=== PATIENT | male | born 1975 | race Caucasian/White ===

== ENCOUNTER 2020-10-24 12:43 | Emergency (ER) | payer MEDICAID, SELFPAY ==
[2020-10-24 13:15] VITALS: BP 143/90; PULSE 90; RESP 18; TEMP 35.9; O2SAT 97; BMI 36.5
--- NOTE | 2020-10-24 13:29 | ED_ITS ---
HPI - General Adult General Chief complaint: General Medical Stated complaint: body ache, cough Time Seen by Provider: 10/24/20 13:24 Source: patient Mode of arrival: ambulatory Limitations: no limitations History of Present Illness HPI narrative: Has had body aches and chills since yesterday multiple family members at home with similar symptoms. Onset (ago): day(s) (2 days ) Severity: mild Exacerbating factors: none Treatments prior to arrival: none Related Data Allergies Allergy/AdvReac Type Severity Reaction Status Date / Time shellfish derived Allergy Severe SWELLING Verified 10/24/20 13:17 [SHELLFISH DERIVED] Review of Systems Review of Systems: Constitutional: No Weight loss, No Fever, + Chills, No Night Sweats, No Fatigue, No Malaise ENT/Mouth: No Hearing loss, No Ear Pain, No Sinus Pain, No Hoarseness, No sore throat, + Rhinorrhea, No Swallowing Difficulty Eyes: No Eye Pain, No Swelling, No Redness, No Foreign Body, No Discharge, No Vision Changes Cardiovascular: No Chest Pain, No SOB, No Dyspnea on Exertion, No Orthopnea, No Edema, No Palpitations Respiratory: No Cough, No Sputum, No Wheezing, No Smoke Exposure, No Dyspnea Gastrointestinal: No Nausea, No Vomiting, No Diarrhea, No Constipation, No abdominal Pain, No Hematochezia, No Melena Genitourinary: no irregular bleeding, No Dysuria, No Urinary Frequency, No Hematuria, No Urinary Incontinence, No Urgency, No Flank Pain, No Urinary Flow Changes, No Hesitancy Musculoskeletal: No joint pain, + Myalgias, No Joint Swelling Skin: No Skin Lesions, No rash Neuro: No Weakness, No Numbness, No Paresthesias, No Loss of Consciousness, No Dizziness, No Headache Psych: No Social Issues Heme/Lymph: No Bruising, No Bleeding,No Lymphadenopathy Endocrine: No Polyuria, No Polydipsia, No Temperature Intolerance PMFSH Past Medical History Medical History HTN (hypertension) Social History Social History Advance Directives: No Advance Directives Information Provided: Yes Physical Exam Vital Signs: Vital Signs: Last Vital Signs Temp 96.7 F L 10/24/20 13:15 Pulse 90 10/24/20 13:15 Resp 18 10/24/20 13:15 BP 143/90 H 10/24/20 13:15 Pulse Ox 97 10/24/20 13:15 Body Mass Index 36.5 Reviewed Const: General: cooperative and healthy appearing; No acute distress or intoxicated appearing Nutritional Appearance: average body habitus Orientation/consciousness: patient oriented x3 HENMT: Head: Yes normal to inspection Ears: hearing grossly normal bilaterally Face and sinus: Yes other (Mild rhinorrhea) Eyes: General: appearance normal, both eyes and all related structures Visual Vick: normal visual vick by confrontation Neck: Neck: Yes normal visual inspection, No positive Brudzinski's sign, No positive Kernig's sign and No tender Thyroid: Thyroid normal Chest: Chest palpation & inspection: normal inspection of the chest Resp: Effort & Inspection: normal respiratory effort Auscultation: clear to auscultation bilaterally Cardio: Jugular venous distension: no JVD Rate: regular rate Rhythm: regular rhythm GI: Inspection: Yes normal to inspection Percussion: Yes normal to percussion Auscultation: normal bowel sounds : General: Yes no CVA tenderness Back/Spine/Pelvis: Back: no CVA tenderness Skin: General skin exam: no rashes or lesions noted Neuro: General: patient oriented x3 Extrem: General: Yes normal to inspection Course Course Course Narrative: Here with 2 other family members with similar symptoms for COVID-19 testing. Overall nontoxic appearing. He is single. COVID-19 PCR sent out, self-isolation/social distancing guidelines provided. Remain out of work until at least 3 days symptom-free / negative COVID test. Discharge Plan Discharge Clinical Impression: Acute viral syndrome Patient Disposition: Home, Self-Care Instructions: Viral Syndrome (ED) Additional Instructions: Based on your symptoms and history we have sent a COVID-19. Although your RESULT IS PENDING at this time. RESULTS should return within 72 hours. At this time you will be contacted with either NEGATIVE OR POSITIVE results. -Please wait until we contact you for your results. At this time you will be okay for discharge. Please plan for self quarantine for up to 14 days. Do not expose yourself to others. You may not go to work. If testing does come back negative you may return to activities as long as you are no longer having any symptoms for at least 3 days. Please continue to follow cold instructions and wash your hands frequently. You may take Tylenol as directed on the bottle for pain or fever. Patient seen in the emergency department and should be excused from work until negative test results AND until 72 hours without any symptoms AND at least 10 days have passed since symptoms first appeared or since last exposure to COVID- 19 positive patient CDC Guidelines for home isolation: - Stay away from others - WEAR A MASK if you are sick AND STAY HOME - Cover your mouth and nose with a tissue when you cough or sneeze. Dispose of tissues in a lined trash can and wash your hands immediately with soap and water for at least 20 seconds. If soap and water are not available, clean hands with alcohol-based hand office support specialist that contains at least 60% alcohol. - Clean your hands often with soap and water for at least 20 seconds - Avoid touching your eyes, nose and mouth with unwashed hands - Do not share dishes, drinking glasses, cups, eating utensils, towels, or bedding with other people in your home. After using these items, wash them thoroughly with soap and water or put in the ophthalmic surgical assistant. - Clean high-touch surfaces in your isolation area ( sick room and bathroom) every day; let a caregiver clean and disinfect high-touch surfaces in other areas of the home. Clean the area or item with soap and water or another detergent if it is dirty. Then, use a household disinfectant. - Limit contact with pets and animals: If you must care for a pet, wash your hands before and after interacting with them Stand Alone Forms: Work/School Release
== END 2020-10-24 14:24 | disposition home or self-care (01) ==
PROVIDERS: Nurse Practitioner Primary Care; Emergency Provider Emergency Medicine; PCP Internal Medicine
DX: B34.9 Viral infection, unspecified (principal); M79.10 Myalgia, unspecified site; Z20.828 Contact with and (suspected) exposure to other viral communicable diseases
CPT/HCPCS: 99283; U0003

== ENCOUNTER 2020-10-27 09:43 | Outpatient (REF) | payer MEDICAID, SELFPAY | END 2020-10-27 09:44 | disposition home or self-care (01) | LOC: HO.LAB 09:43 | PROVIDERS: Visit Provider Internal Medicine | DX: Z20.828 Contact with and (suspected) exposure to other viral communicable diseases (principal) | CPT/HCPCS: 36415; C9803; U0003 ==

== ENCOUNTER 2021-12-08 09:41 | Emergency (ER) | payer MEDICAID, SELFPAY ==
--- NOTE | ~2021-12-08 | XR_ITS ---
EXAMINATION: XR HIP, LEFT CLINICAL INFORMATION: AP pelvis and left hip COMPARISON: None TECHNIQUE: Two views of the left hip. FINDINGS: AP pelvis: There is normal symmetry of bilateral hip joints and SI joints. No visible fracture or dislocation seen. AP pelvis and left hip: There is no visible acute fracture or dislocation. No bony erosive changes. The soft tissues are normal. XR/XR hip LT w PEL1V IMPRESSION: Unremarkable AP pelvis and left hip exam
--- NOTE | ~2021-12-08 | US_ITS ---
EXAMINATION: US VENOUS ULTRASOUND WITH DOPPLER LOWER EXTREMITY, LEFT CLINICAL INFORMATION: Left thigh pain. Question DVT. COMPARISON: None TECHNIQUE: Ultrasound of the deep veins is performed from the hip to the calf with compression sonography and color and pulse Doppler assessment. Spectral analysis with color-flow imaging is performed. FINDINGS: There is normal venous compression and respiratory variation and augmented flow. The visualized common femoral vein, superficial femoral vein, profunda femoral vein, popliteal vein, and the trifurcation region shows no evidence of deep venous thrombosis. There is no significant popliteal fossa cyst. US/US venous duplex LE LT IMPRESSION: No acute DVT demonstrated in the left lower extremity.
[2021-12-08 09:57] VITALS: BP 119/86; PULSE 84; RESP 19; TEMP 36.6; O2SAT 99; BMI 34.8
--- NOTE | 2021-12-08 11:39 | ED_ITS ---
HPI - General Adult General Chief complaint: Extremity Injury, Lower Stated complaint: leg/hip pain Time Seen by Provider: 12/08/21 11:25 Source: patient Mode of arrival: ambulatory Limitations: no limitations History of Present Illness HPI narrative: 46-year-old male presents to ED for left thigh pain. patient desc ibed left thigh pain as burning/hot sensation. patient states started having this issue last year. Patient denies any back pain, abdominal pain, left lower extremity swelling, redness, fever, or chills. Patient states he has not has had any images for issue. patient states seen mutliple Doctors and has not been given an answer. patient states he is not diabetic and has been worked for diabetes and is negative. Patient states burning in left thigh return 5 days ago and has been constant. patient states last episode was last monght. Patient denies any recent trauma. Patient denies any overuse of extremity or running. Related Data Previous Rx's Medication Instructions Recorded ketorolac 10 mg tablet 10 mg PO QID PRN 5 Days #20 tab 12/08/21 Allergies Allergy/AdvReac Type Severity Reaction Status Date / Time shellfish derived Allergy Severe SWELLING Verified 10/24/20 13:17 [SHELLFISH DERIVED] Review of Systems Review of Systems: left thigh pain Yes all other systems are reviewed and are negative [facility] Past Medical History Medical History HTN (hypertension) Social History Social History Advance Directives: No Advance Directives Information Provided: No Physical Exam ED Vital Signs: Vital Signs - 24 hr 12/08/21 09:57 Temperature 98 F Pulse Rate 84 Respiratory Rate 19 Blood Pressure 119/86 Pulse Oximetry 99 BMI result Body Mass Index 34.8 Const General: cooperative, healthy appearing, comfortable, no acute distress, well developed, alert and awake Orientation/consciousness: oriented to time and patient oriented x3 HENMT Head: Yes normal to inspection, Yes No palpable skull fracture present, Yes normocephalic, Yes atraumatic and No abrasion Eyes General: appearance normal, both eyes and all related structures Neck Neck: Yes normal visual inspection, Yes full ROM, Yes no lymphadenopathy, Yes no meningeal signs, Yes trachea midline, Yes supple, No anterior neck swelling and No tender Chest Chest palpation & inspection: normal inspection of the chest and normal palpation of entire chest wall Resp Effort & Inspection: normal respiratory effort and able to speak in complete sentences Auscultation: clear to auscultation bilaterally Cardio Jugular venous distension: no JVD Heart sounds: S1 normal heart sound present and S2 normal heart sound present GI Inspection: Yes normal to inspection and No abdominal wall ecchymosis Palpation (GI): Soft to palpation, not firm, nontender and no guarding General: No CVA tenderness and Yes no CVA tenderness Back/Spine/Pelvis Back: no CVA tenderness, No CVA tenderness and No back tenderness Skin General skin exam: no rashes or lesions noted and elasticity normal Neuro General: oriented to time, patient oriented x3, gait normal and no meningeal signs Extrem General: Yes normal to inspection and Yes full ROM Upper/lower leg/hip images: 1. significant Tenderness on palpation. Negative for any erythema, palpable mass, fluctulant mass, swelling, or ecchymosis. Popliteal pulses intact. Femoral pulses intact. Pedal pulses intact. Motor/nose/left lower extremity intact. Left lower extremity negative for any erythema, swelling, ecchymosis, crepitus, or deformity. Psych Appearance: grossly normal, well kempt and not disheveled Course Course Course Narrative: History physical exam indicate more neuropathy but will do ultrasound to rule out DVT and hip/pelvis x-ray which will include femur.. Reevaluation(s) Reevaluation #1: X-ray and left lower extremity ultrasound came back negative for DVT or fractures. History physical exam does not indicate DVT, cellulitis, fracture, compartment syndrome,rhambdomylosis, or arterial occlusion. This has been going on off and on for 1 year. Diagnosis peripheral neuropathy. Patient refused gabapentin prescription. Looked over patient's chart and so he was seen providers last year and had neurodiagnostics test but there is no actual notes Time: 13:49 Medical Decision Making [facility] Narrative Medical decision making narrative: Neuropathy Discharge Plan Discharge Clinical Impression: Peripheral neuropathy Patient Disposition: Home, Self-Care Instructions: Peripheral Neuropathy (ED) Additional Instructions: Morejon radiograf?a y ultrasonido resultaron negativos para fractura o trombosis venosa profunda. Usted est? a agnes para el susie. S?ntomas por neuropat?a perif?shabana. Por favor, roseline un seguimiento con el proveedor de atenci?n primari a. Regrese al servicio de urgencias por cualquier hinchaz?n de la extremidad inferior izquierda, enrojecimiento, decoloraci?n amadeo azulada, dolor en la pantorrilla, fiebre, escalofr?os, calor, frialdad, dolor en el pecho, dificultad para respirar o cualquier otro s?ntoma preocupante. Prescriptions: New ketorolac 10 mg tablet 10 mg PO QID PRN (Reason: pain) 5 Days Qty: 20 0RF Stand Alone Forms: Work/School Release Interventions: ED Discharge Assessment Last Done: 12/08/21 14:21 Discharge Date/Time: 12/08/21 14:22 Print Language: Gambian
[2021-12-08] MEDS: Ketorolac Tromethamine 60 MG/2 ML VIAL IM (11:47)
== END 2021-12-08 14:22 | disposition home or self-care (01) ==
PROVIDERS: Emergency Provider Emergency Medicine; PCP Internal Medicine
DX: G62.9 Polyneuropathy, unspecified (principal); M79.652 Pain in left thigh; I10 Essential (primary) hypertension
CPT/HCPCS: 73502; 93971; 96372; 99284; J1885

== ENCOUNTER 2022-10-07 14:02 | Emergency (ER) | payer MEDICAID, SELFPAY ==
--- NOTE | ~2022-10-07 | XR_ITS ---
EXAMINATION: XR LUMBOSACRAL SPINE CLINICAL INFORMATION: Low back pain COMPARISON: None TECHNIQUE: Three views of the lumbosacral spine. FINDINGS: 5 nonrib-bearing lumbar vertebral bodies are visualized. There is normal alignment. Lumbar vertebral body heights and disc spaces are maintained. No significant degenerative changes. Small pelvic calcifications are likely vascular in nature. XR/XR lumbar spine 2-3V IMPRESSION: Unremarkable radiographs of the lumbar spine.
[2022-10-07 14:06] VITALS: BP 117/74; PULSE 83; RESP 18; TEMP 36.8; O2SAT 96; BMI 36.6
--- NOTE | 2022-10-07 14:07 | ED.BACK ---
HPI - Back Pain/Injury General Chief Complaint: Back Pain/Injury <SARA Lucio Last Filed: 10/07/22 14:10> Stated Complaint: back pain <SARA Lucio Last Filed: 10/07/22 14:10> Time Seen by Provider: 10/07/22 14:34 <SARA Lucio Last Filed: 10/07/22 14:10> History of Present Illness HPI Narrative: patient complains of right-sided back pain which began when he bent over to get his shoe this morning and feels a sharp pain that does not radiate and the right side of his back that is worse with movement, there is no numbness weakness or tingling there is no changes to bowel or bladder <SARA Webb Last Filed: 10/08/22 11:09> Related Data Home Medications: Previous Rx's Medication Instructions Recorded ketorolac 10 mg tablet 10 mg PO QID PRN pain 5 days #20 12/08/21 tabs acetaminophen 500 mg tablet 1,000 mg PO QID PRN pain #30 tabs 10/07/22 cyclobenzaprine 5 mg tablet 5 mg PO TID PRN muscle spasm #10 10/07/22 tabs ibuprofen 600 mg tablet 600 mg PO Q6H PRN pain #20 tabs 10/07/22 oxycodone 5 mg tablet 5 mg PO Q6H PRN pain #14 tabs 10/07/22 <SARA Lucio Last Filed: 10/07/22 14:10> Allergies/Adverse Reactions: Allergies Allergy/AdvReac Type Severity Reaction Status Date / Time shellfish derived Allergy Severe SWELLING Verified 10/07/22 14:06 [SHELLFISH DERIVED] <SARA Lucio Last Filed: 10/07/22 14:10> Review of Systems Review of Systems: positive for back pain Negatives are no headache no neck pain no chest pain no shortness of breath no abdominal pain no dysuria no frequency no changes to bowel or bladder no incontinence no constipation no numbness weakness or tingling no joint rash <SARA Webb Last Filed: 10/08/22 11:09> Yes all other systems are reviewed and are negative <SARA Webb Last Filed: 10/08/22 11:09> PMFSH Past Medical History Source: nursing notes reviewed <SARA Webb - Last Filed: 10/08/22 11:09> Medical History: Medical History HTN (hypertension) <SARA Lucio - Last Filed: 10/07/22 14:10> Social History Social History: Social History Advance Directives: No Advance Directives Information Provided: No <SARA Lucio - Last Filed: 10/07/22 14:10> Physical Exam Vital Signs: Vital Signs: Last Vital Signs Temp 98.3 F 10/07/22 14:06 Pulse 83 10/07/22 14:06 Resp 18 10/07/22 14:06 BP 117/74 10/07/22 14:06 Pulse Ox 96 10/07/22 14:06 O2 Del Method 10/07/22 14:06 BMI result Body Mass Index 36.6 <SARA Lucio - Last Filed: 10/07/22 14:10> Vital Signs: Last Vital Signs Temp 98.3 F 10/07/22 14:06 Pulse 83 10/07/22 14:06 Resp 18 10/07/22 14:06 BP 117/74 10/07/22 14:06 Pulse Ox 96 10/07/22 14:06 O2 Del Method 10/07/22 14:06 BMI result Body Mass Index 36.6 <SARA Webb - Last Filed: 10/08/22 11:09> general appearance no distress Head is normocephalic atraumatic Neck is supple Respiratory no distress Abdomen soft nontender The back had right-sided lower lumbar tenderness, pain easily reproduced with movement, skin was normal, there is no CVA tenderness there was no focal bony tenderness Extremities full range of motion x4 Neuro gait and balance are normal, the motor is 5/5 x4 and sensation is intact and symmetrical <SARA Webb - Last Filed: 10/08/22 11:09> Course Course Course Narrative: ARIEL 14:10PM - 47yoM who is Jordanian Speaking presenting to the ER with complaints of sudden onset of lower back pain that started after he was bending over to pick something up. Reports this started prior to arrival. Denies any fevers, history of IV drug use, urinary bowel incontinence or retention, dysuria hematuria or any other symptoms complaints or concerns at this time. Plan: Lumbar Xray. Patient with normal steady gait he can go back to the waiting room to be evaluated in [facility]. <SARA Lucio - Last Filed: 10/07/22 14:10> RME- 14:10PM - 47yoM who is Jordanian Speaking presenting to the ER with complaints of sudden onset of lower back pain that started after he was bending over to pick something up. Reports this started prior to arrival. Denies any fevers, history of IV drug use, urinary bowel incontinence or retention, dysuria hematuria or any other symptoms complaints or concerns at this time. Plan: Lumbar Xray. Patient with normal steady gait he can go back to the waiting room to be evaluated in [facility]. Patient with musculoskeletal reproducible low back pain without neurologic deficit change to bowel or bladder is discharged ambulating easily <SARA Webb - Last Filed: 10/08/22 11:09> Medications Administered Discontinued Medications Generic Name Dose Route Start Last Admin Trade Name Freq PRN Reason Stop Dose Admin Acetaminophen 975 mg 10/07/22 15:33 10/07/22 15:46 Acetaminophen 325 Mg Tablet PO 10/07/22 15:34 975 mg ONCE ONE Administration Ketorolac Tromethamine 30 mg 10/07/22 15:33 10/07/22 15:46 Ketorolac Tromethamine 30 Mg/Ml Vial IM 10/07/22 15:34 30 mg ONCE ONE Administration <SARA Lucio - Last Filed: 10/07/22 14:10> Medications Administered Discontinued Medications Generic Name Dose Route Start Last Admin Trade Name Freq PRN Reason Stop Dose Admin Acetaminophen 975 mg 10/07/22 15:33 10/07/22 15:46 Acetaminophen 325 Mg Tablet PO 10/07/22 15:34 975 mg ONCE ONE Administration Ketorolac Tromethamine 30 mg 10/07/22 15:33 10/07/22 15:46 Ketorolac Tromethamine 30 Mg/Ml Vial IM 10/07/22 15:34 30 mg ONCE ONE Administration <SARA Webb - Last Filed: 10/08/22 11:09> Discharge Plan Discharge Clinical Impression: Strain of lumbar region <SARA Lucio - Last Filed: 10/07/22 14:10> Patient Disposition: Home, Self-Care <SARA Lucio - Last Filed: 10/07/22 14:10> Additional Instructions: use pain medicine and muscle relaxer if needed Follow with primary care doctor next week if not better Most of this type of back pain gets better by itself over several days Return to the ER any time any worse condition or any concerns <SARA Lucio - Last Filed: 10/07/22 14:10> Prescriptions: New acetaminophen 500 mg tablet 1,000 mg PO QID PRN (Reason: pain) Qty: 30 0RF ibuprofen 600 mg tablet 600 mg PO Q6H PRN (Reason: pain) Qty: 20 0RF cyclobenzaprine 5 mg tablet 5 mg PO TID PRN (Reason: muscle spasm) Qty: 10 0RF oxycodone 5 mg tablet 5 mg PO Q6H PRN (Reason: pain) Qty: 14 0RF Rx Instructions: Partial Fill upon patient request. No Action ketorolac 10 mg tablet 10 mg PO QID PRN (Reason: pain) 5 Days Qty: 20 0RF <SARA Lucio - Last Filed: 10/07/22 14:10> Interventions: ED Discharge Assessment Last Done: 10/07/22 15:51 <SARA Lucio - Last Filed: 10/07/22 14:10> Discharge Date/Time: 10/07/22 15:52 <SARA Lucio - Last Filed: 10/07/22 14:10>
[2022-10-07] MEDS: Acetaminophen 325 MG TABLET 975 MG PO (15:46)
[2022-10-07] MEDS: Ketorolac Tromethamine 30 MG/ML VIAL IM (15:46)
== END 2022-10-07 15:52 | disposition home or self-care (01) ==
PROVIDERS: Emergency Provider Emergency Medicine; PCP Internal Medicine
DX: S39.012A Strain of muscle, fascia and tendon of lower back, initial encounter (principal); X50.9XXA Other and unspecified overexertion or strenuous movements or postures, initial encounter; I10 Essential (primary) hypertension; Y93.89 Activity, other specified; Y92.039 Unspecified place in apartment as the place of occurrence of the external cause; Y99.9 Unspecified external cause status
CPT/HCPCS: 72100; 96372; 99283; 99284; J1885

== ENCOUNTER 2022-10-15 14:21 | Emergency (ER) | payer MEDICAID, SELFPAY ==
[2022-10-15 14:25] VITALS: BP 118/93; PULSE 128; RESP 18; TEMP 36.7; O2SAT 96; BMI 35.2
--- NOTE | 2022-10-15 15:35 | ECG_ITS ---
Test Reason : COUGH Blood Pressure : / mmHG Vent. Rate : 097 BPM Atrial Rate : 097 BPM P-R Int : 140 ms QRS Dur : 082 ms QT Int : 350 ms P-R-T Axes : 023 017 029 degrees QTc Int : 444 ms Normal sinus rhythm Normal ECG When compared with ECG of 24-JUN-2020 17:07, No significant change was found Referred By: Stephanie Junior Electronically Signed By:Lawrence Clifford
--- NOTE | 2022-10-15 15:55 | ED_ITS ---
HPI - General Adult General Chief complaint: General Medical Stated complaint: cough, body aches Time Seen by Provider: 10/15/22 15:33 Source: patient Mode of arrival: ambulatory Limitations: language barrier (Turkmen-speaking remote medical coder utilized) History of Present Illness HPI narrative: Patient is a 47-year-old male who presents to the emergency department for evaluation of intermittent headache, productive cough with yellow phlegm, and generalized body aches. His daughter and significant other are ill with similar symptoms as well. Symptom onset a couple of days ago. Additionally, he states that his blood pressure and heart rate have been high for the past couple of days. He states when he takes his atenolol his heart rate is usually normal. When asked, he states he has not taken his atenolol for the past couple of days because he ran out and is unable to get a refill until tomorrow. Denies dizziness, lightheadedness, neck pain, neck stiffness, chest pain, shortness of breath, difficulty breathing, nausea, vomiting, abdominal pain, numbness or tingling of the extremities. Related Data Previous Rx's Medication Instructions Recorded ketorolac 10 mg tablet 10 mg PO QID PRN pain 5 days #20 12/08/21 tabs acetaminophen 500 mg tablet 1,000 mg PO QID PRN pain #30 tabs 10/07/22 cyclobenzaprine 5 mg tablet 5 mg PO TID PRN muscle spasm #10 10/07/22 tabs ibuprofen 600 mg tablet 600 mg PO Q6H PRN pain #20 tabs 10/07/22 oxycodone 5 mg tablet 5 mg PO Q6H PRN pain #14 tabs 10/07/22 Allergies Allergy/AdvReac Type Severity Reaction Status Date / Time shellfish derived Allergy Severe SWELLING Verified 10/07/22 14:06 [SHELLFISH DERIVED] Review of Systems Review of Systems: Constitutional: No fever. No chills. No weakness. Positive fatigue. Positive body aches ENT/ Mouth: No Ear Pain, positive Nasal Congestion, no sore throat, No Rhinorrhea, No Swallowing Difficulty Skin: No rash or itching. Cardiovascular: No chest pain. No palpitations. Respiratory: No shortness of breath. Positive cough. Positive sputum production. Gastrointestinal: No nausea. No vomiting. No diarrhea. No abdominal pain. Genitourinary: No burning micturition. No urinary frequency. Neurologic: Positive headache. No dizziness. No syncope. No numbness or tingling in the extremities. Musculoskeletal: No back pain. No joint pain or stiffness. Yes all other systems are reviewed and are negative [facility] Past Medical History Attestation statement: The following information was validated with the patient. Source: old records reviewed Medical History HTN (hypertension) Social History Social History Advance Directives: No Advance Directives Information Provided: No Physical Exam ED Vital Signs: Vital Signs - 24 hr 10/15/22 14:25 10/15/22 16:12 10/15/22 16:23 Temperature 98.1 F 98.1 F Pulse Rate 128 H 104 H 100 Respiratory Rate 18 20 Blood Pressure 118/93 H 118/79 118/79 Pulse Oximetry 96 96 Oxygen Delivery Method Room Air Room Air Oxygen Flow Rate 10/15/22 17:52 Temperature Pulse Rate 99 Respiratory Rate 16 Blood Pressure 101/73 Pulse Oximetry 98 Oxygen Delivery Method Nasal Cannula Oxygen Flow Rate 2 BMI result Body Mass Index 35.2 Appearance: Alert.?Oriented to person, place and time. No acute distress.?Normal affect. Eyes: Pupils equal, round and reactive to light.? ENT: Pharynx normal.?? Neck: Normal inspection.? Neck supple.??No cervical lymphadenopathy. No nuchal rigidity CVS: Heart sounds normal. Normal heart rate and rhythm.? Pulses normal.?? Respiratory: No respiratory distress.? Lung sounds clear to auscultation bilaterally?? Abdomen: Soft and non-tender. ? Skin: Skin warm and dry.? Normal skin color.? Extremities: No lower extremity edema.? Neuro: Moves all extremities spontaneously. Sensation intact bilaterally. No focal neuro deficits. Ambulates with normal steady gait. Medications Administered Discontinued Medications Generic Name Dose Route Start Last Admin Trade Name Freq PRN Reason Stop Dose Admin Atenolol 50 mg 10/15/22 15:54 10/15/22 16:22 Atenolol 50 Mg Tablet PO 10/15/22 15:55 50 mg ONCE ONE Administration Protocol Medical Decision Making Medical Decision Making MDM Narrative: Patient is a 47-year-old male with a past medical history of hypertension presented to emergency department for evaluation of upper respiratory symptoms. Initially presented tachycardic with heart rate of 128 and hypertensive 118/93, upon re-evaluation heart rate 104, patient has not been taking his atenolol for the past 2 days as he ran out. Patient to receive a dose of atenolol in the emergency department advised to picker packer his refill tomorrow when the pharmacy is open. His physical examination is overall benign, I suspect a self-limiting viral illness. No meningismus, not consistent with meningitis. COVID- 19/influenza/RSV testing are all negative. He is nontoxic appearing, afebrile without tachypnea or hypoxia. No apparent respiratory distress, clear full sentences. Tolerating p.o. intake. Discussed plan of care for discharge home, conservative treatments, outpatient follow-up with primary care provider as needed for persistent symptoms. Discussed worrisome signs and symptoms to return back to the emergency department for, all questions were answered. He is stable for discharge. Lab Data MDM Lab Attestation statement: I reviewed the patient's lab results. Labs: Lab Results 10/15/22 Range/Units 16:22 Influenza Type A (PCR) NEGATIVE (Negative) Influenza Type B (PCR) NEGATIVE (Negative) RSV RNA Qual (PCR) NEGATIVE (Negative) SARS-CoV-2 RNA (RT-PCR) NEGATIVE (Negative) Discharge Plan Discharge Clinical Impression: Upper respiratory infection Patient Disposition: Home, Self-Care Instructions: Upper Respiratory Infection (ED) Additional Instructions: Your testing for COVID-19, influenza, and RSV were all negative today. I suspect that your symptoms are due to a viral upper respiratory infection. Be sure to rest, stay well hydrated drinking plenty of fluids, eat small frequent meals. Tylenol/ibuprofen can be used as needed for fever/pain. [id number]-ynt-fzzgroc cold medications may be helpful as well for symptoms. Saline nasal spray, humidifier may be helpful for nasal congestion. You were given a dose of your atenolol while in the emergency department today, as discussed, please go to the pharmacy to picker packer your medications tomorrow. You may return to the emergency department with any new or worsening symptoms or concerns. Follow-up with your primary care provider as needed. Prescriptions: No Action ketorolac 10 mg tablet 10 mg PO QID PRN (Reason: pain) 5 Days Qty: 20 0RF acetaminophen 500 mg tablet 1,000 mg PO QID PRN (Reason: pain) Qty: 30 0RF ibuprofen 600 mg tablet 600 mg PO Q6H PRN (Reason: pain) Qty: 20 0RF cyclobenzaprine 5 mg tablet 5 mg PO TID PRN (Reason: muscle spasm) Qty: 10 0RF oxycodone 5 mg tablet 5 mg PO Q6H PRN (Reason: pain) Qty: 14 0RF Rx Instructions: Partial Fill upon patient request. Referrals: Anisa Brennan MD [Primary Care Provider] -
--- OUTSIDE RECORDS SUMMARY | 2022-10-15 15:59 | XMS_ITS | Continuity of Care Document ---
:1975 Author Organization [facility]
[2022-10-15 16:12] VITALS: BP 118/79; PULSE 104; RESP 20; TEMP 36.7; O2SAT 96
[2022-10-15 16:23] VITALS: BP 118/79; PULSE 100
[2022-10-15 17:05] LABS: Influenza A PCR NEGATIVE (Negative); Influenza B PCR NEGATIVE (Negative); Resp Syncy Virus RNA Qual PCR NEGATIVE (Negative); SARS COV2 PCR INHOUSE NEGATIVE (Negative)
[2022-10-15 17:52] VITALS: BP 101/73; PULSE 99; RESP 16; O2SAT 98
== END 2022-10-15 18:26 | disposition home or self-care (01) ==
PROVIDERS: Emergency Provider Student in an Organized Health Care Education/Training Program; PCP Internal Medicine
DX: J06.9 Acute upper respiratory infection, unspecified (principal); R05.9 Cough, unspecified; M79.10 Myalgia, unspecified site; Z20.822 Contact with and (suspected) exposure to COVID-19
CPT/HCPCS: 0241U; 93005; 99284

== ENCOUNTER 2022-11-22 14:20 | Outpatient (REF) | payer MEDICAID, SELFPAY | END 2022-11-22 14:21 | disposition home or self-care (01) | LOC: HO.MRI 14:20 | PROVIDERS: PCP Internal Medicine; Visit Provider Internal Medicine | DX: Z13.89 Encounter for screening for other disorder (principal) ==

== ENCOUNTER 2023-07-11 | Outpatient (REF) | payer MEDICAID, SELFPAY ==
[2023-07-12 15:23] LABS: Influenza A PCR NEGATIVE (Negative); Influenza B PCR NEGATIVE (Negative); Resp Syncy Virus RNA Qual PCR NEGATIVE (Negative); SARS COV2 PCR INHOUSE NEGATIVE (Negative)
== END 2023-07-11 00:01 | disposition home or self-care (01) ==
LOC: HO.HHCLNP
PROVIDERS: Visit Provider Registered Nurse
DX: Z20.822 Contact with and (suspected) exposure to COVID-19 (principal); R05.9 Cough, unspecified
CPT/HCPCS: 0241U

== ENCOUNTER 2023-09-03 14:13 | Outpatient (REF) | payer MEDICAID, SELFPAY ==
[2023-09-05 17:43] LABS: TS Negative Control Passed; TS Panel A 0; TS Panel B 1; TS Positive Control Passed; TSpotTB Negative (Negative)
== END 2023-09-03 14:14 | disposition home or self-care (01) ==
LOC: HO.HHCL 14:13
PROVIDERS: Visit Provider Internal Medicine
DX: Z11.1 Encounter for screening for respiratory tuberculosis (principal)
CPT/HCPCS: 36415; 86481

== ENCOUNTER 2023-09-10 14:32 | Outpatient (REF) | payer MEDICAID, SELFPAY ==
[2023-09-10 16:22] LABS: Anion Gap 12 (12-20); Blood Urea Nitrogen 10 mg/dL (9-16); Calcium 9.7 mg/dL (8.4-10.2); Carbon Dioxide 31 mmol/L (22-29); Chloride 100 mmol/L (96-108); Estimated Glomerular Filt Rate > 60; Glucose Random 164 mg/dL (60-115); Potassium 3.5 mmol/L (3.3-5.1); Sodium 139 mmol/L (135-145)
[2023-09-10 16:23] LABS: Cholesterol 252 mg/dL (<200); HDL Cholesterol 46 mg/dL (>40); LDL Cholesterol Calculated 143 mg/dL (<100); Triglycerides 318 mg/dL (<150)
[2023-09-10 16:53] LABS: Reflex LDLD? No
[2023-09-10 17:05] LABS: Creatinine Urine 195.15 mg/dL; Microalbum/Creatinine Ratio Ur 280.8 ug/mg cr (<30)
[2023-09-11 04:13] LABS: HBsAGNum1 0.29 S/CO (0.00-0.99); HIV AB/AG Nonreactive (Nonreactive); HIV Num 1 0.05 S/CO (0.00-0.99); Hepatitis A Antibody IgM 0.39 Index (0-0.79); Hepatitis B Core Antibody Nonreactive (Nonreactive); Hepatitis B Surface Antigen Negative (Negative); ~HepC Num1 0.23 S/CO (0.00-0.79); ~Hepatitis A Antibody IgM Nonreactive (Nonreactive); ~Hepatitis B Surface Antibody NONREACTIVE (Nonreactive); ~Hepatitis C Antibody Nonreactive (Nonreactive)
[2023-09-11 13:09] LABS: RPR Rapid Plasma Reagin NON-REACTIVE (NON-REACTIVE)
== END 2023-09-10 14:33 | disposition home or self-care (01) ==
LOC: HO.HHCL 14:32
PROVIDERS: Visit Provider Internal Medicine
DX: Z00.00 Encounter for general adult medical examination without abnormal findings (principal); E11.65 Type 2 diabetes mellitus with hyperglycemia; I10 Essential (primary) hypertension; Z79.4 Long term (current) use of insulin
CPT/HCPCS: 36415; 80048; 80061; 82043; 82570; 86592; 86704; 86706; 86709; 86803; 87340; 87389

== ENCOUNTER 2023-10-05 15:59 | Emergency (ER) | payer MEDICAID, SELFPAY ==
--- NOTE | 2023-10-05 16:07 | ED_ITS ---
HPI - General Adult General Chief complaint: Upper Respiratory Symptoms Stated complaint: bodyache Time Seen by Provider: 10/05/23 16:30 Source: patient and family (partner) Mode of arrival: ambulatory Limitations: no limitations History of Present Illness HPI narrative: 48 year old male with pmhx significant for nephrolithasis presents to the ED today with a complaint of body aches, cough, and left flank pain x3 days. States flank pain feels similar to renal stone. Has been taking Tylenol at home without relief. Additionally endorses body aches and cough x3 days. Cough is not productive of sputum. Denies fever, chills, sore throat, chest pain, wheezes, shortness of breath, nausea, vomiting, diarrhea, constipation, dysuria, hematuria, bowel or bladder incontinence or retention, saddle anesthesia, tingl ing/numbness/weakness of extremities. Denies IV drug use. COVID exposure at home. Family ill with similar symptoms. Related Data Previous Rx's Medication Instructions Recorded ketorolac 10 mg tablet 10 mg PO QID PRN pain 5 days #20 12/08/21 tabs acetaminophen 500 mg tablet 1,000 mg (2 x 500 mg) PO QID PRN 10/07/22 pain #30 tabs cyclobenzaprine 5 mg tablet 5 mg PO TID PRN muscle spasm #10 10/07/22 tabs ibuprofen 600 mg tablet 600 mg PO Q6H PRN pain #20 tabs 10/07/22 oxycodone 5 mg tablet 5 mg PO Q6H PRN pain #14 tabs 10/07/22 atenolol 50 mg tablet 50 mg PO DAILY 14 days #14 tabs 10/16/22 benzonatate 100 mg capsule 100 mg PO BID PRN cough #14 caps 10/05/23 lidocaine 5 % topical patch 1 patch topical DAILY #15 ea 10/05/23 (Lidoderm) Allergies Allergy/AdvReac Type Severity Reaction Status Date / Time shellfish derived Allergy Severe SWELLING Verified 10/07/22 14:06 [SHELLFISH DERIVED] Review of Systems Review of Systems: Constitutional: No fever, chills, fatigue, night sweats, weight changes ENT/Mouth: No ear pain, hearing loss, nasal congestion, sinus pain, rhinorrhea, sore throat Eyes: No eye pain, swelling, redness, vision changes, discharge Cardio: No chest pain, palpitations, CHANEL, orthopnea, peripheral edema Pulm: No SOB, +cough, No sputum, wheezing, dyspnea, hemoptysis GI: No nausea, vomiting, hematemesis, abdominal pain, diarrhea, constipation, hematochezia, melena : No irregular bleeding, dysuria, frequency, urgency, hesitancy, hematuria, + left flank pain, No urinary flow changes, urinary incontinence or retention MSK: No back pain, neck pain, joint pain, +myalgias Skin: No lesions, rashes Neuro: No weakness, numbness, paresthesias, LOC, dizziness, headache All other systems reviewed and are negative. [facility] Past Medical History Attestation statement: The following information was validated with the patient. Source: old records reviewed and nursing notes reviewed Medical History HTN (hypertension) Social History Social History Advance Directives: No Advance Directives Information Provided: No Physical Exam ED Vital Signs: Vital Signs - 24 hr 10/05/23 16:09 Temperature 98.4 F Pulse Rate 89 Respiratory Rate 20 Blood Pressure 147/93 H Pulse Oximetry 96 Oxygen Delivery Method Room Air BMI result Body Mass Index 34.7 Vital signs stable, afebrile, not hypoxic Const Other: Sitting comfortably in chair General: cooperative, healthy appearing, comfortable, no acute distress, alert and awake Orientation/consciousness: patient oriented x3 Limitations: no limitations HENMT Other: + posterior oropharynx without erythema or edema. No tonsillar exudates. Uvula is midline. No peritonsillar masses. Controlling secretions and speaking in complete sentences. Head: Yes normal to inspection Ears: hearing grossly normal bilaterally, external ears normal, TM's normal bilaterally, EAC's normal, mastoids normal and no periauricular adenopathy General nose exam: Normal external nose present, Normal nares present and No nasal discharge present Face and sinus: Yes normal facial exam and Yes sinuses nontender Eyes General: appearance normal, both eyes and all related structures Conjunctivae: conjunctivae normal Sclerae: sclerae normal Pupils: Equal, round and reactive pupils present EOM: EOMs intact bilaterally Neck Neck: Yes normal visual inspection, Yes full ROM, Yes no lymphadenopathy and Yes no meningeal signs Resp Effort & Inspection: normal respiratory effort Auscultation: clear to auscultation bilaterally Cardio Rate: regular rate Rhythm: regular rhythm Peripheral pulses: radial pulses present, posterior tibial pulses present and dorsalis pedis present GI Inspection: Yes normal to inspection Palpation (GI): Soft to palpation, nontender, no guarding and no hepatosplenomegaly Other: + left CVAT Back/Spine/Pelvis Other: No midline spinous tenderness. No paraspinal muscle tenderness. No step off deformity. + left CVAT Skin General skin exam: no rashes or lesions noted Neuro Other: Strength 5/5 intact throughout.? No saddle anesthesia.? Sensation intact to light touch.? Neurovascular intact distally.? General: patient oriented x3, gait normal, moves all extremities and no meningeal signs Cranial nerves: Yes Equal, round and reactive pupils present Deep tendon reflexes (DTR's): Right patellar reflex intensity grade: 2+ and Left patellar reflex intensity grade: 2+ Extrem General: Yes normal to inspection and Yes full ROM Course Course Course Narrative: RME performed by Ruby Garcia PA-C. Patient is a 48 year old assigned male at presenting to the emergency department with body aches. Hx of kidney stones, Also complaining of low back pain. Swabs ordered. Patient placed back in the waiting room pending room availability and results. Reevaluation(s) Reevaluation #1: On re-evaluation, patient reports pain improvement with lidocaine and Tylenol. I informed him that he has tested negative for flu, COVID, RSV, strep throat. His urine is negative for infection. Informed him that we are just waiting for his CT to be taken and read. He tells me that he does no longer want a CT scan as he is hungry and wants to go home. I offered to give patient a snack in ED. He is declining. States he would still like to go home. I explained to him that imaging will help us evaluate for renal stones. He verbalizes understanding and continues to decline imaging. Patient has remained stable throughout ED visit today. I will send Gil Barr to pharmacy for cough. Discussed worrisome signs and symptoms and when to return to the emergency department. All questions answered at this time. Patient is agreeable with disposition and stable for discharge. Medications Administered Discontinued Medications Generic Name Dose Route Start Last Admin Trade Name Freq PRN Reason Stop Dose Admin Acetaminophen 975 mg 10/05/23 17:08 10/05/23 17:35 Acetaminophen 325 Mg Tablet PO 10/05/23 17:09 975 mg ONCE ONE Administration Dexamethasone Sodium Phosphate 10 mg 10/05/23 17:21 10/05/23 17:35 Dexamethasone Sod Phosphate 10 Mg/Ml Vial IVPUSH 10/05/23 17:22 10 mg ONCE ONE Administration Lidocaine 1 patch 10/05/23 17:08 10/05/23 17:35 Lidocaine 4 % Patch Adh..Patch TRANSDERMA 10/05/23 17:09 1 patch ONCE ONE Administration Protocol Medical Decision Making Medical Decision Making [facility] Narrative: 48 year old male with pmhx significant for nephrolithasis presents to the ED today with a complaint of body aches, cough, and left flank pain x3 days. Vital signs stable, afebrile, not hypoxic. Nontoxic appearing in no acute distress. Sitting comfortably in chair. Posterior oropharynx without erythema or edema, uvula midline, no peritonsillar masses or tonsillar exudates, controlling secretions and speaking complete sentences. Bilaterally EACs and TMs within normal limits. Lungs CTA bilaterally. There is left-sided CVAT. Clinical concern for viral syndrome, gastroenteritis, strep throat. Concern for renal colic, urinary tract infection, nephrolithiasis. Concern for muscle sprain/strain. Unlikely pneumonia, PE, PICK UP OPERATOR, retropharyngeal abscess, epiglottitis. Unlikely hydronephrosis, pyelonephritis, cauda equina, epidural abscess, cord compression, fracture, subluxation, disc herniation. Plan for urinalysis, serology, imaging and pain control. Differential Diagnosis Differential Diagnoses: The differential diagnosis associated with the presentation includes As above Admission/Observation Not indicated Lab Data [facility] Lab Attestation statement: I reviewed the patient's lab results. As above Labs: Lab Results 10/05/23 10/05/23 Range/Units 16:21 16:28 Urine Color Dark Yellow Urine Appearance Clear Urine pH 5.5 (5.0-9.0) Ur Specific [place] 1.020 (1.005-1.025) Urine Protein 100 (2+) H (Neg-Trace) mg/dL Urine Glucose (UA) Negative (Negative) mg/dL Urine Ketones Trace (Negative) mg/dL Urine Blood Negative (Negative) Urine Nitrite Negative (Negative) Ur Leukocyte Esterase Trace H (Negative) Urine RBC 0-2 (0-2) /HPF Urine WBC 0-5 (0-5) /HPF Ur Squamous Epith Cells 0-2 (0-2) /HPF Urine Bacteria None Seen (None Seen) Hyaline Casts 3-5 (0-2) /LPF Influenza Type A (PCR) NEGATIVE (Negative) Influenza Type B (PCR) NEGATIVE (Negative) RSV RNA Qual (PCR) NEGATIVE (Negative) SARS-CoV-2 RNA (RT-PCR) NEGATIVE (Negative) S. pyogenes GrpA NIDA Negative (Negative) Independent Historian Clinical information obtained from an independent historian. History obtained from or confirmed by: Spouse External Record Review External record reviewed: Inpatient record Tests considered The following testing was considered but not selected: I considered obtaining CT abdomen and pelvis to rule out renal stone however patient declines imaging at this time. Prescription Management I considered prescription management with: Pain Medication and Other (Antitussive) Social Determinants Patient?s care significantly limited by Social Determinants of Health including: Other Social Determinant of Health Critical Care Time Critical Care Time Critical Care Time: No Discharge Plan Discharge Clinical Impression: Back pain, Viral syndrome Patient Disposition: Home, Self-Care Instructions: Acute Low Back Pain (ED), Viral Syndrome (ED) Additional Instructions: You tested negative for COVID, flu, RSV, strep throat. You currently reside in a house with 2 COVID positive people. Due to your exposure you should self isolate for 5 days. He should also wear a mask for 5 days after that. You may take Tylenol or ibuprofen as needed for pain/body aches. Gil Barr have been sent to your pharmacy for cough. You also declined CT scan of your abdomen pelvis today to look for kidney stones. Lidoderm patches have been sent to your pharmacy. You may apply these to your back to help with pain. Follow-up with your primary care provider as needed. If symptoms persist or worsen please return to the emergency department. In the case of an emergency call 911. Prescriptions: New benzonatate 100 mg capsule 100 mg PO BID PRN (Reason: cough) Qty: 14 0RF lidocaine [Lidoderm] 5 % adhesive patch,medicated 1 patch topical DAILY Qty: 15 0RF Rx Instructions: leave on most painful area for up to 12 hrs No Action ketorolac 10 mg tablet 10 mg PO QID PRN (Reason: pain) 5 Days Qty: 20 0RF acetaminophen 500 mg tablet 1,000 mg PO QID PRN (Reason: pain) Qty: 30 0RF ibuprofen 600 mg tablet 600 mg PO Q6H PRN (Reason: pain) Qty: 20 0RF cyclobenzaprine 5 mg tablet 5 mg PO TID PRN (Reason: muscle spasm) Qty: 10 0RF oxycodone 5 mg tablet 5 mg PO Q6H PRN (Reason: pain) Qty: 14 0RF Rx Instructions: Partial Fill upon patient request. atenolol 50 mg tablet 50 mg PO DAILY 14 Days Qty: 14 0RF Stand Alone Forms: Work/School Release Interventions: ED Discharge Assessment Last Done: 10/05/23 18:40 Discharge Date/Time: 10/05/23 18:40 Print Language: Czech
[2023-10-05 16:09] VITALS: BP 147/93; PULSE 89; RESP 20; TEMP 36.9; O2SAT 96; BMI 34.7
[2023-10-05 16:36] LABS: Appearance Urine Clear; Color Urine Dark Yellow; Glucose Urine UA Negative (Negative); Leukocyte Esterase Urine Trace (Negative); Nitrite Urine Negative (Negative); PH 5.5 (5.0-9.0); UMIC TRIGGER UACC YES; Urine Blood Negative (Negative); Urine Ketones Trace mg/dL (Negative); Urine Protein 100 (2+) mg/dL (Neg-Trace)
[2023-10-05 16:39] LABS: Bacteria Urine None Seen (None Seen); RBC Urine 0-2 /HPF (0-2); Squamous Epithelial Cell Urine 0-2 /HPF (0-2); WBC Urine 0-5 /HPF (0-5)
[2023-10-05 17:13] LABS: Influenza A PCR NEGATIVE (Negative); Influenza B PCR NEGATIVE (Negative); Resp Syncy Virus RNA Qual PCR NEGATIVE (Negative); SARS COV2 PCR INHOUSE NEGATIVE (Negative)
[2023-10-05 17:22] LABS: IDNOW Serial# 58CA691E; Strep A Nucleic Acid Negative (Negative)
[2023-10-05] MEDS: Acetaminophen 325 MG TABLET 975 MG PO (17:35)
[2023-10-05] MEDS: Lidocaine 4 % Patch ADH..PATCH 1 PATCH TRANSDERMA (17:35)
[2023-10-05] MEDS: dexAMETHasone sod phosphate 10 MG/ML VIAL IVPUSH (17:35)
== END 2023-10-05 18:40 | disposition home or self-care (01) ==
PROVIDERS: Physician Assistant Medical; Emergency Provider Emergency Medicine; PCP Internal Medicine
DX: B34.9 Viral infection, unspecified (principal); M79.10 Myalgia, unspecified site; Z20.822 Contact with and (suspected) exposure to COVID-19; Z20.828 Contact with and (suspected) exposure to other viral communicable diseases; Z79.899 Other long term (current) drug therapy
CPT/HCPCS: 0241U; 81001; 87651; 99283; J1100

== ENCOUNTER 2024-05-01 14:54 | Emergency (ER) | payer OTHER, SELFPAY ==
[2024-05-01 15:13] VITALS: BP 144/89; PULSE 84; RESP 18; TEMP 37; O2SAT 98; BMI 33.9
--- NOTE | 2024-05-01 15:13 | ED_ITS ---
HPI - GI Bleed General Chief complaint: General Medical Stated complaint: rectal bleeding Time Seen by Provider: 05/01/24 19:14 Related Data Previous Rx's ?Medication ?Instructions ?Recorded ketorolac 10 mg tablet 10 mg PO QID PRN pain 5 days #20 12/08/21 tabs acetaminophen 500 mg tablet 1,000 mg (2 x 500 mg) PO QID PRN 10/07/22 pain #30 tabs cyclobenzaprine 5 mg tablet 5 mg PO TID PRN muscle spasm #10 10/07/22 tabs ibuprofen 600 mg tablet 600 mg PO Q6H PRN pain #20 tabs 10/07/22 oxycodone 5 mg tablet 5 mg PO Q6H PRN pain #14 tabs 10/07/22 atenolol 50 mg tablet 50 mg PO DAILY 14 days #14 tabs 10/16/22 benzonatate 100 mg capsule 100 mg PO BID PRN cough #14 caps 10/05/23 lidocaine 5 % topical patch 1 patch topical DAILY #15 ea 10/05/23 (Lidoderm) Allergies Allergy/AdvReac Type Severity Reaction Status Date / Time shellfish derived Allergy Severe SWELLING Verified 05/01/24 15:14 [SHELLFISH DERIVED] [facility] Past Medical History Medical History HTN (hypertension) Social History Social History Advance Directives: No Advance Directives Information Provided: No Physical Exam 2 Vital Signs: Vital Signs: Last Vital Signs Temp 97.9 F 05/01/24 19:20 Pulse 70 05/01/24 19:57 Resp 14 05/01/24 19:20 BP 161/95 H 05/01/24 19:57 Pulse Ox 100 05/01/24 19:20 O2 Del Method Room Air 05/01/24 19:20 BMI result Body Mass Index 33.9 Course Course Course Narrative: This is a Rapid Medical Examination (RME) performed by Anne Keys PA-C in triage. Full HPI, ROS, assessment and treatment plan per primary provider in the Main ED. 48 yo Ecuadorean speaking male with history of HTN, kidney stones, presents to the ER for evaluation of rectal bleeding for the last 3 days. there are some drops in the toilet, but mostly when he wipes himself. the 1st day it was a lot and then it stopped yesterday, returned today. admits to occasional constipation. reports cramping with bowel movements. Plan: CHANTELL, labs Reevaluation(s) Reevaluation #1: see Dr. Gutierrez's note for this encounter Medical Decision Making Lab Data 05/01/24 15:33 05/01/24 15:33 Labs: Lab Results 05/01/24 Range/Units 15:33 WBC 7.3 (4.8-10.8) X10*3/uL RBC 3.49 L (4.60-5.80) X10*6/uL Hgb 13.4 L (14.0-18.0) g/dl Hct 38.4 L (42.0-52.0) % MCV 110.0 H (80.0-98.0) fL MCH 38.4 H (27.0-33.0) pg MCHC 34.9 (31.0-36.0) g/dl RDW 11.9 (11.0-16.0) % Plt Count 181 (160-400) X10*3/uL MPV 11.3 (9.4-12.4) fL Immature Gran % (Auto) 0.3 (0.0-0.4) % Neut % (Auto) 60.9 (45-73) % Lymph % (Auto) 26.1 (20-40) % [place] % (Auto) 10.4 (2-11) % Eos % (Auto) 2.0 (0-4) % Baso % (Auto) 0.3 (0-2) % Lymph # (Auto) 1.9 (1.2-4.9) X10*3/uL [place]once # (Auto) 0.8 (0.1-1.2) X10*3/uL Eos # (Auto) 0.2 (0.0-0.4) X10*3/uL Baso # (Auto) 0.0 (0.0-0.2) X10*3/uL Abs Immat Gran (auto) 0.02 (0.00-0.03) X10*3/uL Absolute Neuts (auto) 4.5 (2.0-8.3) x10*3/uL Absolute Nucleated RBC 0.000 (0.0-0.012) X10*3/uL Nucleated RBC % (auto) 0.0 (0.0-0.2) /100WBC Sodium 139 (135-145) mmol/L Potassium 3.6 (3.3-5.1) mmol/L Chloride 104 (96-108) mmol/L Carbon Dioxide 28 (22-29) mmol/L Anion Gap 11 L (12-20) BUN 14 (9-16) mg/dL Creatinine 0.92 (0.5-1.4) mg/dL Estim Creat Clear Calc 107.2 Estimated GFR > 60 Random Glucose 214 H (60-115) mg/dL Calcium 10.2 (8.4-10.2) mg/dL Magnesium 1.9 (1.6-2.6) mg/dL Total Bilirubin 0.6 (0.0-1.0) mg/dL Direct Bilirubin 0.2 (0.0-0.5) mg/dL AST 39 H (5-37) U/L ALT 49 H (0-40) U/L Alkaline Phosphatase 74 (39-117) U/L Total Protein 7.7 (6.5-8.0) g/dL Albumin 4.2 (3.5-5.0) g/dL Urine Color Yellow Urine Appearance Clear Urine pH 5.5 (5.0-9.0) Ur Specific [place] 1.020 (1.005-1.025) Urine Protein 100 (2+) H (Neg-Trace) mg/dL Urine Glucose (UA) Negative (Negative) mg/dL Urine Ketones Trace (Negative) mg/dL Urine Blood Negative (Negative) Urine Nitrite Negative (Negative) Ur Leukocyte Esterase Negative (Negative) Urine RBC 0-2 (0-2) /HPF Urine WBC 0-5 (0-5) /HPF Ur Squamous Epith Cells 0-2 (0-2) /HPF Urine Bacteria None Seen (None Seen) Hyaline Casts 0-2 (0-2) /LPF Discharge Plan Discharge Clinical Impression: Hemorrhoid Patient Disposition: Home, Self-Care Instructions: Hemorrhoids (DC) Prescriptions: No Action ketorolac 10 mg tablet 10 mg PO QID PRN (Reason: pain) 5 Days Qty: 20 0RF acetaminophen 500 mg tablet 1,000 mg PO QID PRN (Reason: pain) Qty: 30 0RF ibuprofen 600 mg tablet 600 mg PO Q6H PRN (Reason: pain) Qty: 20 0RF cyclobenzaprine 5 mg tablet 5 mg PO TID PRN (Reason: muscle spasm) Qty: 10 0RF oxycodone 5 mg tablet 5 mg PO Q6H PRN (Reason: pain) Qty: 14 0RF Rx Instructions: Partial Fill upon patient request. atenolol 50 mg tablet 50 mg PO DAILY 14 Days Qty: 14 0RF benzonatate 100 mg capsule 100 mg PO BID PRN (Reason: cough) Qty: 14 0RF lidocaine [Lidoderm] 5 % adhesive patch,medicated 1 patch topical DAILY Qty: 15 0RF Rx Instructions: leave on most painful area for up to 12 hrs Referrals: Álvaro Copeland MD [Physician] - 05/05/24 Print Language: Ecuadorean
[2024-05-01 15:49] LABS: MANUAL DIFF FLAG NO
[2024-05-01 15:53] LABS: Appearance Urine Clear; Basophils Percent Auto 0.3 % (0-2); Color Urine Yellow; Eosinophils Absolute Auto 0.2 X10*3/uL (0.0-0.4); Glucose Urine UA Negative (Negative); Hematocrit 38.4 % (42.0-52.0); Hemoglobin 13.4 g/dl (14.0-18.0); Imm Gran Abs Auto 0.02 X10*3/uL (0.00-0.03); Imm Gran Pct Auto 0.3 % (0.0-0.4); Leukocyte Esterase Urine Negative (Negative); Lymphocytes Absolute Auto 1.9 X10*3/uL (1.2-4.9); Lymphocytes Percent Auto 26.1 % (20-40); Mean Corpuscular HGB Conc 34.9 g/dl (31.0-36.0); Mean Corpuscular Hemoglobin 38.4 pg (27.0-33.0); Mean Platelet Volume 11.3 fL (9.4-12.4); Monocytes Absolute Auto 0.8 X10*3/uL (0.1-1.2); Monocytes Percent Auto 10.4 % (2-11); Neutrophils Absolute Auto 4.5 x10*3/uL (2.0-8.3); Neutrophils Percent Auto 60.9 % (45-73); Nitrite Urine Negative (Negative); PH 5.5 (5.0-9.0); Platelet Count 181 X10*3/uL (160-400); Red Blood Count 3.49 X10*6/uL (4.60-5.80); Red Cell Distribution Width 11.9 % (11.0-16.0); UMIC TRIGGER UACC YES; Urine Blood Negative (Negative); Urine Ketones Trace mg/dL (Negative); Urine Protein 100 (2+) mg/dL (Neg-Trace); White Blood Count 7.3 X10*3/uL (4.8-10.8)
[2024-05-01 16:05] LABS: Alanine Aminotransferase 49 U/L (0-40); Albumin Level 4.2 g/dL (3.5-5.0); Alkaline Phosphatase 74 U/L (39-117); Anion Gap 11 (12-20); Aspartate Amino Transferase 39 U/L (5-37); Bilirubin Direct 0.2 mg/dL (0.0-0.5); Bilirubin Total 0.6 mg/dL (0.0-1.0); Blood Urea Nitrogen 14 mg/dL (9-16); Calcium 10.2 mg/dL (8.4-10.2); Carbon Dioxide 28 mmol/L (22-29); Chloride 104 mmol/L (96-108); Creatinine Clr Calc Pharmacy 107.2; Estimated Glomerular Filt Rate > 60; Glucose Random 214 mg/dL (60-115); Magnesium 1.9 mg/dL (1.6-2.6); Potassium 3.6 mmol/L (3.3-5.1); Sodium 139 mmol/L (135-145); Total Protein 7.7 g/dL (6.5-8.0)
[2024-05-01 16:32] LABS: Bacteria Urine None Seen (None Seen); Hyaline Casts Urine 0-2 /LPF (0-2); RBC Urine 0-2 /HPF (0-2); Squamous Epithelial Cell Urine 0-2 /HPF (0-2); WBC Urine 0-5 /HPF (0-5)
[2024-05-01 19:20] VITALS: BP 159/91; PULSE 67; RESP 14; TEMP 36.6; O2SAT 100
[2024-05-01 19:53] VITALS: BP 165/100; PULSE 68
[2024-05-01 19:54] VITALS: BP 153/96; PULSE 64
[2024-05-01 19:57] VITALS: BP 161/95; PULSE 70
--- NOTE | 2024-05-01 19:59 | ED_ITS ---
HPI - General Adult General Chief complaint: General Medical Stated complaint: rectal bleeding Time Seen by Provider: 05/01/24 19:14 History of Present Illness HPI narrative: Patient is a 48-year-old male with a history of constipation in the past. Patient noted hard stool along with having blood when he wipes blood in the toilet bowl. Patient denies any history of NSAID use. Did not have any alcohol use. He is from home. No dizziness no chest pain or shortness of breath. Patient is from home. No fever no chills. Related Data Previous Rx's ?Medication ?Instructions ?Recorded ketorolac 10 mg tablet 10 mg PO QID PRN pain 5 days #20 12/08/21 tabs acetaminophen 500 mg tablet 1,000 mg (2 x 500 mg) PO QID PRN 10/07/22 pain #30 tabs cyclobenzaprine 5 mg tablet 5 mg PO TID PRN muscle spasm #10 10/07/22 tabs ibuprofen 600 mg tablet 600 mg PO Q6H PRN pain #20 tabs 10/07/22 oxycodone 5 mg tablet 5 mg PO Q6H PRN pain #14 tabs 10/07/22 atenolol 50 mg tablet 50 mg PO DAILY 14 days #14 tabs 10/16/22 benzonatate 100 mg capsule 100 mg PO BID PRN cough #14 caps 10/05/23 lidocaine 5 % topical patch 1 patch topical DAILY #15 ea 10/05/23 (Lidoderm) Allergies Allergy/AdvReac Type Severity Reaction Status Date / Time shellfish derived Allergy Severe SWELLING Verified 05/01/24 15:14 [SHELLFISH DERIVED] Review of Systems 2 Review of Systems: Positive blood when he wipes. Yes all other systems are reviewed and are negative [facility] Past Medical History Attestation statement: The following information was validated with the patient. Medical History HTN (hypertension) Social History Social History Advance Directives: No Advance Directives Information Provided: No Physical Exam ED Vital Signs: Vital Signs - 24 hr 05/01/24 15:13 05/01/24 19:20 05/01/24 19:53 Temperature 98.6 F 97.9 F Pulse Rate 84 67 68 Respiratory Rate 18 14 Blood Pressure 144/89 H 159/91 H 165/100 H Pulse Oximetry 98 100 Oxygen Delivery Method Room Air Room Air 05/01/24 19:54 05/01/24 19:57 Temperature Pulse Rate 64 70 Respiratory Rate Blood Pressure 153/96 H 161/95 H Pulse Oximetry Oxygen Delivery Method BMI result Body Mass Index 33.9 Appearance: Alert. Oriented X3. No acute distress. Eyes: Pupils equal, round and reactive to light. ENT: Pharynx normal. Neck: Normal inspection. Neck supple. No lymph nodes noted. No crepitus CVS: Normal heart rate and rhythm. Pulses normal. Normal S1 and S2 Respiratory: No respiratory distress. Breath sounds normal. No Wheezing. No rales Abdomen: Soft and nontender. No rigidity. No distention. good BS x4 Rectal exam showed minimal stool. No blood noted. Skin: Skin warm and dry. Normal skin color. Normal skin turgor. Extremities: No lower extremity edema. Neurovascular intact to all extremities. No Lacerations. No Rash Neuro: Oriented X 3. No motor deficit. No sensory deficit. Moving all extermities. No slurred speech Medical Decision Making Medical Decision Making MDM Narrative: Patient's hemoglobin is over 13 today. Approximately baseline. Orthostatic will be done. Stool sent for guaiac. Currently in stable condition no acute distress on exam there was hemorrhoids noted. More likely that has the cause of patient's bleeding. No distress. Patient's orthostatics were done. On lying down blood pressure is 165/100 heart rate 63. On standing patient's blood pressure is 161/95 heart rate is 70. Patient is not orthostatic. Patient is case discussed with him. Will discharge patient home. Most likely hemorrhoidal bleed. Will require follow-up on an outpatient basis. Careful diet consideration. Follow-up with surgery. Differential Diagnosis Differential Diagnoses: The differential diagnosis associated with the presentation includes GI bleed, hemorrhoid Admission/Observation Consideration of admission/observation: Escalation of care including admission/observation considered Lab Data [facility] Lab Attestation statement: I reviewed the patient's lab results. 05/01/24 15:33 05/01/24 15:33 Labs: Lab Results 05/01/24 05/01/24 Range/Units 15:33 20:00 WBC 7.3 (4.8-10.8) X10*3/uL RBC 3.49 L (4.60-5.80) X10*6/uL Hgb 13.4 L (14.0-18.0) g/dl Hct 38.4 L (42.0-52.0) % MCV 110.0 H (80.0-98.0) fL MCH 38.4 H (27.0-33.0) pg MCHC 34.9 (31.0-36.0) g/dl RDW 11.9 (11.0-16.0) % Plt Count 181 (160-400) X10*3/uL MPV 11.3 (9.4-12.4) fL Immature Gran % (Auto) 0.3 (0.0-0.4) % Neut % (Auto) 60.9 (45-73) % Lymph % (Auto) 26.1 (20-40) % [place] % (Auto) 10.4 (2-11) % Eos % (Auto) 2.0 (0-4) % Baso % (Auto) 0.3 (0-2) % Lymph # (Auto) 1.9 (1.2-4.9) X10*3/uL [place] # (Auto) 0.8 (0.1-1.2) X10*3/uL Eos # (Auto) 0.2 (0.0-0.4) X10*3/uL Baso # (Auto) 0.0 (0.0-0.2) X10*3/uL Abs Immat Gran (auto) 0.02 (0.00-0.03) X10*3/uL Absolute Neuts (auto) 4.5 (2.0-8.3) x10*3/uL Absolute Nucleated RBC 0.000 (0.0-0.012) X10*3/uL Nucleated RBC % (auto) 0.0 (0.0-0.2) /100WBC Sodium 139 (135-145) mmol/L Potassium 3.6 (3.3-5.1) mmol/L Chloride 104 (96-108) mmol/L Carbon Dioxide 28 (22-29) mmol/L Anion Gap 11 L (12-20) BUN 14 (9-16) mg/dL Creatinine 0.92 (0.5-1.4) mg/dL Estim Creat Clear Calc 107.2 Estimated GFR > 60 Random Glucose 214 H (60-115) mg/dL Calcium 10.2 (8.4-10.2) mg/dL Magnesium 1.9 (1.6-2.6) mg/dL Total Bilirubin 0.6 (0.0-1.0) mg/dL Direct Bilirubin 0.2 (0.0-0.5) mg/dL AST 39 H (5-37) U/L ALT 49 H (0-40) U/L Alkaline Phosphatase 74 (39-117) U/L Total Protein 7.7 (6.5-8.0) g/dL Albumin 4.2 (3.5-5.0) g/dL Urine Color Yellow Urine Appearance Clear Urine pH 5.5 (5.0-9.0) Ur Specific [place] 1.020 (1.005-1.025) Urine Protein 100 (2+) H (Neg-Trace) mg/dL Urine Glucose (UA) Negative (Negative) mg/dL Urine Ketones Trace (Negative) mg/dL Urine Blood Negative (Negative) Urine Nitrite Negative (Negative) Ur Leukocyte Esterase Negative (Negative) Urine RBC 0-2 (0-2) /HPF Urine WBC 0-5 (0-5) /HPF Ur Squamous Epith Cells 0-2 (0-2) /HPF Urine Bacteria None Seen (None Seen) Hyaline Casts 0-2 (0-2) /LPF Stool Occult Blood POSITIVE (NEGATIVE) External Record Review Previous hemoglobin reviewed Discharge Plan Discharge Clinical Impression: Hemorrhoid Patient Disposition: Home, Self-Care Instructions: Hemorrhoids (DC) Prescriptions: No Action ketorolac 10 mg tablet 10 mg PO QID PRN (Reason: pain) 5 Days Qty: 20 0RF acetaminophen 500 mg tablet 1,000 mg PO QID PRN (Reason: pain) Qty: 30 0RF ibuprofen 600 mg tablet 600 mg PO Q6H PRN (Reason: pain) Qty: 20 0RF cyclobenzaprine 5 mg tablet 5 mg PO TID PRN (Reason: muscle spasm) Qty: 10 0RF oxycodone 5 mg tablet 5 mg PO Q6H PRN (Reason: pain) Qty: 14 0RF Rx Instructions: Partial Fill upon patient request. atenolol 50 mg tablet 50 mg PO DAILY 14 Days Qty: 14 0RF benzonatate 100 mg capsule 100 mg PO BID PRN (Reason: cough) Qty: 14 0RF lidocaine [Lidoderm] 5 % adhesive patch,medicated 1 patch topical DAILY Qty: 15 0RF Rx Instructions: leave on most painful area for up to 12 hrs Referrals: Álvaro Copeland MD [Physician] - 05/05/24 Print Language: Chinese
[2024-05-01 20:19] LABS: OBS Int Ctl Valid YES; OBS1 POSITIVE (NEGATIVE)
[2024-05-01 20:37] VITALS: BP 161/95; PULSE 70; RESP 18; TEMP 36.6; O2SAT 100
== END 2024-05-01 20:39 | disposition home or self-care (01) ==
PROVIDERS: Physician Assistant; Emergency Provider Emergency Medicine Emergency Medical Services; PCP Internal Medicine
DX: K64.9 Unspecified hemorrhoids (principal); K62.5 Hemorrhage of anus and rectum; I10 Essential (primary) hypertension; Z79.899 Other long term (current) drug therapy
CPT/HCPCS: 36415; 80048; 80076; 81001; 81003; 82272; 83735; 85025; 99283

== ENCOUNTER 2024-05-07 14:34 | Outpatient (AMB) | payer OTHER, SELFPAY ==
--- NOTE | 2024-05-07 15:10 | A.OFFVIS_ITS ---
Intake Visit Reasons: Hemorrhoids ED Follow Up Intake Note: This patient [place] [facility] [place] follow-[place] for hemorrhoids. Patient c/o; reports occasional rectal bleeding. Head School Custodian Required: Yes Head School Custodian Language: Special Delivery Carrier Services: Head School Custodian Present (Hermann) Head School Custodian Name: Hermann Information Interpreted: non-clinical & clinical Accompanied by: Self / Same As Patient Allergies shellfish derived [SHELLFISH DERIVED] Allergy (Severe, Verified 05/07/24 15:12) SWELLING Medication List - Last Reconciled 05/07/24 by Demetrio Mares MD acetaminophen 1,000 mg (2 x 500 mg) PO QID PRN atenolol 50 mg PO DAILY 14 days benzonatate 100 mg PO BID PRN cyclobenzaprine 5 mg PO TID PRN ibuprofen 600 mg PO Q6H PRN ketorolac 10 mg PO QID PRN 5 days lidocaine 5% (Lidoderm) 1 patch topical DAILY oxycodone 5 mg PO Q6H PRN HPI HPI Hemorrhoids ED Follow Up: Details: 48-year-old male referred for hemorrhoidal bleeding. He went to the ER last week because of periodic passage of bright blood per rectum described as small amounts of blood on wiping. He said that he did been going on for about 7 days prior to him going to the ER. He says that this really does not happen every day. He says that this is only in small amounts. He says that there would be days where in he would not noticed this. He denies any pain with bowel movements. He says that stools themselves are brown in color. He denies any family history of colon cancer. He admits to chronic constipation [facility] Medical History (Updated 05/07/24 @ 15:43 by Demetrio Mares MD) Bleeding hemorrhoids HTN (hypertension) Review of Systems Const Denies chills and Denies fever(s) Card Denies chest pain, Denies dyspnea and Denies dyspnea on exertion Resp Denies cough, Denies dyspnea and Denies dyspnea on exertion GI Denies hematochezia, Denies change in bowel habits and Reports constipation Denies hematuria and Denies difficulty urinating Musc Denies back pain and Denies limited range of motion Neuro Denies focal weakness and Denies convulsions Psych Denies depression and Denies mood swings Physical Exam Const General: comfortable and no acute distress Orientation/consciousness: patient oriented x3 Neck Neck: Yes no lymphadenopathy Resp Auscultation: clear to auscultation bilaterally Cardio Rhythm: regular rhythm GI Other: Rectal exam shows external hemorrhoids on the left and right side, moderate- sized, nonbleeding Palpation (GI): Soft to palpation, nontender and no guarding Neuro General: patient oriented x3 Office Procedures Anoscopy He was placed in lucila-knife position. The anoscope was gently inserted. A full examination of the anal canal was done. Was noted to have mixed internal and external hemorrhoidal columns on both the left and right side. This were moderate-sized. There were no lesions. There were no ulcers or fissures There was no bleeding. There was no induration on digital exam. [id number] Assessment & Plan Assessment & Plan (1) Bleeding hemorrhoids: Code(s): K64.9 - Unspecified hemorrhoids Category: Medical Plan: Examination and overall clinical picture is consistent with outlet bleeding secondary to his hemorrhoids. He does have a mix of internal external hemorrhoids. I explained to him the option of hemorrhoidectomy. However, he really does not have severe symptoms and he says he does not really noticed a blood every day. I explained to him the option if he has severe bleeding, pain and swelling down the line. He says he will call me this happens in the future. I will give him a prescription for Colace as he does describe constipation. Coding Level of Care Code New Pt Level 3 (95621) Diagnoses Bleeding hemorrhoids K64.9 CPT Codes Details - CPT: 25476-[id number] ([id number])
== END 2024-05-07 15:42 | disposition home or self-care (01) ==
PROVIDERS: PCP Internal Medicine; Visit Provider Surgery
DX: K64.9 Unspecified hemorrhoids (principal)
CPT/HCPCS: 46600; 99203

== ENCOUNTER → 2024-05-07 14:34 | Outpatient (BNVA) | payer SELFPAY | PROVIDERS: PCP Internal Medicine; Visit Provider Surgery | DX: K64.9 Unspecified hemorrhoids (principal) | CPT/HCPCS: 46600; 99202 ==

== ENCOUNTER 2025-04-01 12:37 | Emergency (ER) | payer OTHER, SELFPAY ==
--- NOTE | ~2025-04-01 | MR_ITS ---
CLINICAL HISTORY: ? cva , motion on images, best obtainable, blade run, repeats MR Brain without gadolinium Comparison: CT/SR - CT ANGIO HEAD NECK - 04/01/25 15:25 EDT Findings: No restricted diffusion. No intra-axial mass or hemorrhage. No midline shift. No hydrocephalus. Vascular flow voids are intact. There is very mild white matter disease. Orbital contents are unremarkable. The sinuses and mastoid air cells are clear. No focal bone lesion. IMPRESSION: No acute findings. This document has been electronically signed by: Shannon Montez MD on 04/01/2025 18:06:09
--- NOTE | ~2025-04-01 | CT_ITS ---
EXAMINATION: CT ANGIOGRAM head and NECK CLINICAL INFORMATION: Right lower facial weakness COMPARISON: None available. EXAMINATION: CT ANGIOGRAM HEAD AND NECK COMPARISON: None available. TECHNIQUE: Noncontrast axial imaging of the head was performed. This was followed by test bolus sequences and head and neck intravenous bolus administration 70mL of Omnipaque 350. Helical imaging was performed in the axial plane from the aortic arch to the skull vertex. The data was processed at the office technologist's workstation for generation of MIP sequences. Angled MIPs and volume rendered reformatted images were also generated at an offline 3D workstation. Stenoses are assessed in accordance with NASCET criteria unless otherwise indicated. This CT examination was performed using dose optimization techniques as appropriate, variously including the following: *Automated exposure control *Adjustment of mA and/or kV according to patient size (this includes techniques or standardized protocols for targeted exams where dose is matched to indication/reason for exam; i.e. extremities or head) *Use of iterative reconstruction technique DLP: 1530 mGy*cm FINDINGS: NONCONTRAST HEAD CT: There is no evidence of intracranial hemorrhage or extra-axial fluid collection. There is no mass effect, or edema. No CT evidence of acute territorial infarct. Ventricles, sulci, and cisterns are normal in size and configuration for patient age. No hydrocephalus. No midline shift. No significant white matter abnormalities. Globes and orbital contents image normally. No extracranial soft tissue abnormalities. The paranasal sinuses, mastoid air cells, and tympanic cavities are normally aerated. No suspicious bony abnormalities. NECK CTA: -AORTIC ARCH: Normal in caliber. No atheromatous calcification. Three-vessel branching pattern. -GREAT VESSEL ORIGINS: Widely patent. No stenosis. -RIGHT COMMON CAROTID ARTERY: Normal in course and caliber to the level of the bifurcation. -CERVICAL RIGHT INTERNAL CAROTID ARTERY: Normal opacification without focal stenosis or occlusion. -LEFT COMMON CAROTID ARTERY: Normal in course and caliber to the level of the bifurcation. -CERVICAL LEFT INTERNAL CAROTID ARTERY: Mild calcific atherosclerotic disease of the carotid bulb without stenosis. -CERVICAL RIGHT VERTEBRAL ARTERY: Normal in course and caliber into the skull base. -CERVICAL LEFT VERTEBRAL ARTERY: Normal in course and caliber into the skull base. OTHER, SOFT TISSUES: -No lymphadenopathy or mass. No abnormal fluid collection or soft tissue swelling. -Normal thyroid. -Imaged superior mediastinal structures normal. -Imaged lung apices clear. CTA OF THE BRAIN: -INTRACRANIAL INTERNAL CAROTID ARTERIES: No focal stenosis or occlusion. -RIGHT ANTERIOR CEREBRAL ARTERY: Normal A1 segment.. Normal arborization of the distal segments. -LEFT ANTERIOR CEREBRAL ARTERY: Normal A1 segment.. Normal arborization of the distal segments. -RIGHT MIDDLE CEREBRAL ARTERY: Normal M1 segment of the MCA without focal stenosis or occlusion. Normal bifurcation. Normal arborization of the distal segments. -LEFT MIDDLE CEREBRAL ARTERY: Normal M1 segment of the MCA without focal stenosis or occlusion. Normal bifurcation. Normal arborization of the distal segments. -RIGHT VERTEBRAL ARTERY V4: Normal in course and caliber. Normal PICA branch. -LEFT VERTEBRAL ARTERY V4: Normal in course and caliber. Normal PICA branch. -BASILAR ARTERY: Normal without focal stenosis or occlusion. Normal appearance of the proximal superior cerebellar arteries. Normal basilar tip. -RIGHT POSTERIOR CEREBRAL ARTERY: Normal P1 segment. Normal opacification of the distal CHEF PASSENGER VESSEL segments. -LEFT POSTERIOR CEREBRAL ARTERY: The P1 segment is diminutive. origin of the CHEF PASSENGER VESSEL with robust opacification of the posterior communicating artery. Normal opacification of the distal CHEF PASSENGER VESSEL segments. -POSTERIOR COMMUNICATING ARTERIES: The left is small but present. Right is opacified. Normal opacification of the superior sagittal, straight, transverse, and sigmoid sinuses. No venous thrombosis. No space-occupying hemorrhage or definite evolving infarct. CT/CT angio head neck IMPRESSION: NONCONTRAST HEAD CT: No intracranial hemorrhage or mass effect. No CT evidence of a large acute territorial infarct. CTA NECK: No hemodynamically significant stenosis. CTA HEAD: No hemodynamically significant stenosis. Discussed with Dr. Gutierrez 5:07pm 04/01/2025 who stated the patient will go for MRI for suspicion of stroke Electronically signed by: Emeterio Madrid MD 04/01/2025 05:08 PM EDT
[2025-04-01 12:57] VITALS: BP 146/94; BP 192/126; PULSE 82; PULSE 84; RESP 16; TEMP 37; O2SAT 94; O2SAT 96; BMI 34.9
--- NOTE | 2025-04-01 13:01 | ECG_ITS ---
Test Reason : CP, RESOLVED NOW Blood Pressure : */* mmHG Vent. Rate : 66 BPM Atrial Rate : 66 BPM P-R Int : 142 ms QRS Dur : 84 ms QT Int : 374 ms P-R-T Axes : -1 2 24 degrees QTcB Int : 392 ms Normal sinus rhythm Normal ECG When compared with ECG of 15-Oct-2022 16:13, QT has shortened Referred By: Generic ED Physician Electronically Signed By: MICHAEL LUNDBERG MD
[2025-04-01 13:41] LABS: MANUAL DIFF FLAG NO
[2025-04-01 13:50] LABS: Basophils Percent Auto 0.2 % (0-2); Eosinophils Absolute Auto 0.1 X10*3/uL (0.0-0.4); Eosinophils Percent Auto 2.1 % (0-4); Hematocrit 41.1 % (42.0-52.0); Hemoglobin 14.5 g/dl (14.0-18.0); Imm Gran Abs Auto 0.03 X10*3/uL (0.00-0.03); Imm Gran Pct Auto 0.5 % (0.0-0.4); Lymphocytes Absolute Auto 1.7 X10*3/uL (1.2-4.9); Lymphocytes Percent Auto 25.3 % (20-40); Mean Corpuscular HGB Conc 35.3 g/dl (31.0-36.0); Mean Corpuscular Hemoglobin 38.8 pg (27.0-33.0); Mean Corpuscular Volume 109.9 fL (80.0-98.0); Mean Platelet Volume 11.4 fL (9.4-12.4); Monocytes Absolute Auto 0.7 X10*3/uL (0.1-1.2); Neutrophils Absolute Auto 4.1 x10*3/uL (2.0-8.3); Neutrophils Percent Auto 61.9 % (45-73); Platelet Count 164 X10*3/uL (160-400); Red Blood Count 3.74 X10*6/uL (4.60-5.80); Red Cell Distribution Width 11.6 % (11.0-16.0); White Blood Count 6.6 X10*3/uL (4.8-10.8)
--- NOTE | 2025-04-01 13:58 | PC.NURSE ---
Pt to ED from [facility], pt states he had bloody nose and went to clinic for tx. While at clinic pt developed right sided facial numbness and EMS was called by clinic. Facial numbness has resolve wih EMS. Pt is alert and cooperative. Denies pain at this time. EKG obtained. Labs ordered and obtained, # 20 to L FA. VSS. Plan of care ongoing.
[2025-04-01 13:59] LABS: Alanine Aminotransferase 42 U/L (0-40); Albumin Level 4.2 g/dL (3.5-5.0); Alkaline Phosphatase 76 U/L (39-117); Anion Gap 11 (12-20); Aspartate Amino Transferase 36 U/L (5-37); Bilirubin Total 0.4 mg/dL (0.0-1.0); Blood Urea Nitrogen 21 mg/dL (9-16); Calcium 9.3 mg/dL (8.4-10.2); Carbon Dioxide 27 mmol/L (22-29); Chloride 102 mmol/L (96-108); Estimated Glomerular Filt Rate > 60; Glucose Random 159 mg/dL (60-115); Potassium 3.4 mmol/L (3.3-5.1); Sodium 137 mmol/L (135-145); Total Protein 7.2 g/dL (6.5-8.0)
--- NOTE | 2025-04-01 15:03 | ED.EPISTAXIS ---
History of Present Illness General Chief Complaint: Epistaxis Stated Complaint: Facial Weakness Bloody Nose Time Seen by Provider: 04/01/25 12:56 History of Present Illness HPI Narrative: Patient is a 49-year-old male went to [facility] for nosebleed. Patient then developed right facial numbness. EMS was called patient was sent to the ED. There is no chest pain there is no focal weakness in the arms or legs. Patient has a history of hypertension no history diabetes. Patient from home. No travel history. Patient claims the numbness was over the right face there is no change in speech. There is no difficulty eating. There is no difficulty swallowing. There is no shortness of breath. Patient not on blood thinners. The nosebleed has actually resolved. Related Data Previous Rx's ?Medication ?Instructions ?Recorded ketorolac 10 mg tablet 10 mg PO QID PRN pain 5 days #20 12/08/21 tabs acetaminophen 500 mg tablet 1,000 mg (2 x 500 mg) PO QID PRN 10/07/22 pain #30 tabs cyclobenzaprine 5 mg tablet 5 mg PO TID PRN muscle spasm #10 10/07/22 tabs ibuprofen 600 mg tablet 600 mg PO Q6H PRN pain #20 tabs 10/07/22 oxycodone 5 mg tablet 5 mg PO Q6H PRN pain #14 tabs 10/07/22 atenolol 50 mg tablet 50 mg PO DAILY 14 days #14 tabs 10/16/22 benzonatate 100 mg capsule 100 mg PO BID PRN cough #14 caps 10/05/23 lidocaine 5 % topical patch 1 patch topical DAILY #15 ea 10/05/23 (Lidoderm) docusate sodium 100 mg capsule 100 mg PO BID #60 caps 05/07/24 (Colace) Allergies Allergy/AdvReac Type Severity Reaction Status Date / Time shellfish derived Allergy Severe SWELLING Verified 04/01/25 12:59 [SHELLFISH DERIVED] Review of Systems Review of Systems: Positive right-sided facial weakness Yes all other systems are reviewed and are negative PMFSH Past Medical History Attestation statement: The following information was validated with the patient. Medical History Bleeding hemorrhoids HTN (hypertension) Social History Social History Smoked in Last 30 Days: Yes Use of substances other than those prescribed or required for medical reasons: No Advance Directives: No Advance Directives Information Provided: Yes Physical Exam Vital Signs: Vital Signs: Last Vital Signs Temp 97.5 F 04/01/25 17:23 Pulse 67 04/01/25 17:23 Resp 20 04/01/25 17:23 BP 161/98 H 04/01/25 17:23 Pulse Ox 98 04/01/25 17:23 O2 Del Method Room Air 04/01/25 17:23 BMI result Body Mass Index 34.9 Appearance: Alert. Oriented X3. No acute distress. Eyes: Pupils equal, round and reactive to light. ENT: Pharynx normal. Neck: Normal inspection. Neck supple. No lymph nodes noted. No crepitus CVS: Normal heart rate and rhythm. Pulses normal. Normal S1 and S2 Respiratory: No respiratory distress. Breath sounds normal. No Wheezing. No rales Abdomen: Soft and nontender. No rigidity. No distention. good BS x4 Skin: Skin warm and dry. Normal skin color. Normal skin turgor. Extremities: No lower extremity edema. Neurovascular intact to all extremities. No Lacerations. No Rash Neuro: Oriented X 3. Positive right-sided facial numbness. Seems to be more prominent in the lower half of the face sent in the upper. No sensory deficit. Moving all extermities. No slurred speech NIH Stroke Scale Internal: Initial- Upon Arrival Time: 15:08 Level of Consciousness: Alert Level of Consciousness Questions: Answers both questions correctly Level of Consciousness Commands: Performs both tasks correctly Best Gaze: Normal Visual: No visual loss Facial Palsy: Minor paralyis Motor Arm (Right): No drift Motor Arm (Left): No drift Motor Leg (Right): No drift Motor Leg (Left): No drift Limb Ataxia: Absent Sensory: Normal Best Language: No aphasia Dysarthia: Normal Extinction and Inattention: No abnormality Score: 1 Medications Administered Discontinued Medications Generic Name Dose Route Start Last Admin Trade Name Freq PRN Reason Stop Dose Admin Iohexol 100 ml 04/01/25 16:16 04/01/25 16:16 Iohexol 350 Mg/Ml 100 Ml Infus..Btl IV 04/01/25 16:17 70 ml ONCE ONE Administration Medical Decision Making Medical Decision Making MDM Narrative: Patient has right-sided facial weakness. There is no numbness there is no change in voice. There is no change in speech. Patient arms and legs has good strength. But the facial weakness seems to be slightly more affected by the lower half versus the upper half. We did a CT head by my interpretation was grossly negative. I reviewed radiology's interpretation of the CT angio. There is no large vessel occlusion. Went ahead and got an MRI of the head. There is no evidence of CVA. More likely patient's symptoms consistent with Moura's. Neurologically otherwise intact. Will discharge patient home. Patient's nosebleed was likely anterior as when he arrived in the emergency department the bleeding has stopped. Patient not on blood thinners. Will discharge patient home. Currently in stable condition. Differential Diagnosis Differential Diagnoses: The differential diagnosis associated with the presentation includes Moura's palsy versus CVA Consult Healthcare Provider Management of the patient was discussed with: Respiratory Therapy Instructor (Attempted to contact Neurology) Lab Data [facility] Lab Attestation statement: I reviewed the patient's lab results. 04/01/25 13:36 04/01/25 13:36 Labs: Lab Results 04/01/25 04/01/25 Range/Units 13:35 13:36 WBC 6.6 (4.8-10.8) X10*3/uL RBC 3.74 L (4.60-5.80) X10*6/uL Hgb 14.5 (14.0-18.0) g/dl Hct 41.1 L (42.0-52.0) % MCV 109.9 H (80.0-98.0) fL MCH 38.8 H (27.0-33.0) pg MCHC 35.3 (31.0-36.0) g/dl RDW 11.6 (11.0-16.0) % Plt Count 164 (160-400) X10*3/uL MPV 11.4 (9.4-12.4) fL Immature Gran % (Auto) 0.5 H (0.0-0.4) % Neut % (Auto) 61.9 (45-73) % Lymph % (Auto) 25.3 (20-40) % [place] % (Auto) 10.0 (2-11) % Eos % (Auto) 2.1 (0-4) % Baso % (Auto) 0.2 (0-2) % Lymph # (Auto) 1.7 (1.2-4.9) X10*3/uL [place] # (Auto) 0.7 (0.1-1.2) X10*3/uL Eos # (Auto) 0.1 (0.0-0.4) X10*3/uL Baso # (Auto) 0.0 (0.0-0.2) X10*3/uL Abs Immat Gran (auto) 0.03 (0.00-0.03) X10*3/uL Absolute Neuts (auto) 4.1 (2.0-8.3) x10*3/uL Absolute Nucleated RBC 0.000 (0.0-0.012) X10*3/uL Nucleated RBC % (auto) 0.0 (0.0-0.2) /100WBC Sodium 137 (135-145) mmol/L Potassium 3.4 (3.3-5.1) mmol/L Chloride 102 (96-108) mmol/L Carbon Dioxide 27 (22-29) mmol/L Anion Gap 11 L (12-20) BUN 21 H (9-16) mg/dL Creatinine 0.90 (0.5-1.4) mg/dL Estim Creat Clear Calc 110.0 Estimated GFR > 60 Random Glucose 159 H (60-115) mg/dL Calcium 9.3 D (8.4-10.2) mg/dL Total Bilirubin 0.4 (0.0-1.0) mg/dL AST 36 (5-37) U/L ALT 42 H (0-40) U/L Alkaline Phosphatase 76 (39-117) U/L Troponin I High Sens 4.0 (<3.5-35.0) ng/L Total Protein 7.2 (6.5-8.0) g/dL Albumin 4.2 (3.5-5.0) g/dL Independent Interpretation I performed an independent interpretation of an: EKG (Sinus heart rate is 70 FL QRS QTC normal no acute ST segment elevation) and CT Scan (CT head was grossly negative for any acute evidence of bleeding) Radiology Impression Discussion of test interpretation with radiology: I have reviewed the radiologist's reading. External Record Review External record reviewed: Office record Chronic Conditions Patient?s care impacted by: Hypertension Social Determinants Patient?s care significantly limited by Social Determinants of Health including: Problems related to primary support group Discharge Plan Discharge Clinical Impression: Moura's palsy, Epistaxis Patient Disposition: Home, Self-Care Instructions: Nosebleed (ED), Moura Palsy (ED) Prescriptions: No Action ketorolac 10 mg tablet 10 mg PO QID PRN (Reason: pain) 5 Days Qty: 20 0RF acetaminophen 500 mg tablet 1,000 mg PO QID PRN (Reason: pain) Qty: 30 0RF ibuprofen 600 mg tablet 600 mg PO Q6H PRN (Reason: pain) Qty: 20 0RF cyclobenzaprine 5 mg tablet 5 mg PO TID PRN (Reason: muscle spasm) Qty: 10 0RF oxycodone 5 mg tablet 5 mg PO Q6H PRN (Reason: pain) Qty: 14 0RF Rx Instructions: Partial Fill upon patient request. atenolol 50 mg tablet 50 mg PO DAILY 14 Days Qty: 14 0RF benzonatate 100 mg capsule 100 mg PO BID PRN (Reason: cough) Qty: 14 0RF lidocaine [Lidoderm] 5 % adhesive patch,medicated 1 patch topical DAILY Qty: 15 0RF Rx Instructions: leave on most painful area for up to 12 hrs docusate sodium [Colace] 100 mg capsule 100 mg PO BID Qty: 60 3RF Referrals: Anisa Brennan MD [Primary Care Provider] - 04/03/25 Print Language: Senegalese
--- OUTSIDE RECORDS SUMMARY | 2025-04-01 15:10 | XMS_ITS | Encounter Summary ---
Author Organization [employer] Address [address] [place] [address] Care Team Providers Care Gym Supervisor Name Role Phone Anisa Brennan MD Primary Care Provider + Reason for Visit * Reason Comments Med Refill Encounter Details Date Type Department Care Team ([facility] Contact Info) Description 05/09/2023 Refill [facility] [address], [place] [phone] Anisa Brennan MD [address] [place] [address] Type 2 diabetes mellitus with hyperglycemia, without long-term current use of insulin ([facility]) Social History Tobacco Use Types Packs/Day Years Used Date Smoking Tobacco: Some Days Cigarettes Passive Smoke Exposure: Never Smokeless Tobacco: Never Alcohol Use Standard Drinks/Week Comments Yes 0 (1 standard drink = 0.6 oz pur e alcohol) oca Depression Answer Date Recorded Patient Health Questionnaire-9 Score 2 04/18/2023 Depression Answer Date Recorded Patient Health Questionnaire-2 Score 1 04/18/2023 Sex and Gender Information Value Date Recorded Sex Assigned at Male 08/21/2022 10:31 AM EDT Legal Sex Male 10:31 AM EDT Gender Identity Choose not to disclose 10:31 AM EDT Sexual Orientation Choose not to disclose 2021 10:31 AM EDT COVID-19 Exposure Response Date Recorded In the last 10 days, have yo u been in contact with someone who was confirmed or suspected to have Coronavirus/COVID-19? No / Unsure 04/18/2023 9:44 AM EDT documented as of this encounter Plan of Treatment Upcoming Encounters Date Type Department Care Team (Late st Contact Info) Description 04/02/2025 1:00 PM EDT Office Visit [facility] [address], [place] [phone] Denis Bravo MD [address], [place] [phone] 05/28/2025 12:00 PM EDT Office Visit [facility] MED[facility] [address] [place] [address] Anisa Brennan MD [address] [place] [address] 08/18/2025 3:00 PM EDT Office Visit [facility] [address] [place] [address] Yashira Miller documented as of this encounter Visit Diagnoses Diagnosis Type 2 diabetes mellitus with hyperglycemia, without long-term current use of insulin ([facility]) documented in this encounter Additional Health Concerns Assessment Noted Time PHQ-9 Depression Total Score: 2 04/18/20 23 10:18 AM EDT documented as of this encounter Care Teams Gym Supervisor Relationship Specialty Start Date End Date Anisa Brennan MD [address] [place] [id number] PCP - General Family Medicine 04/03/17 Kaylyn Stafford Fourth MateClinical Appeals Rn 01/17/24 documented as of this encounter
--- NOTE | 2025-04-01 15:21 | PC.NURSE ---
MRI screening form completed with check writer and faxed,
[2025-04-01] MEDS: iohexoL 350 MG/ML 100 ML INFUS..BTL IV (16:16)
[2025-04-01 17:23] VITALS: BP 161/98; PULSE 67; RESP 20; TEMP 36.4; O2SAT 98
[2025-04-01 19:21] VITALS: BP 160/102; PULSE 69; RESP 16; TEMP 36.8; O2SAT 98
== END 2025-04-01 19:21 | disposition home or self-care (01) ==
PROVIDERS: Emergency Provider Emergency Medicine Emergency Medical Services; PCP Internal Medicine
DX: G51.0 Bell's palsy (principal); R04.0 Epistaxis; R20.0 Anesthesia of skin; R29.701 NIHSS score 1; I10 Essential (primary) hypertension; Z79.899 Other long term (current) drug therapy
CPT/HCPCS: 36415; 70496; 70498; 70551; 80053; 84484; 85025; 93005; 99284; 99285; Q9967

== ENCOUNTER → 2025-04-01 13:01 | Outpatient (BNV) | payer OTHER, SELFPAY | PROVIDERS: Emergency Provider Emergency Medicine Emergency Medical Services; PCP Internal Medicine; Visit Provider Internal Medicine Cardiovascular Disease | DX: R20.2 Paresthesia of skin (principal) | CPT/HCPCS: 93010 ==

== ENCOUNTER → 2025-04-01 15:01 | Outpatient (BNV) | payer OTHER, SELFPAY | PROVIDERS: Emergency Provider Emergency Medicine Emergency Medical Services; PCP Internal Medicine; Visit Provider Radiology Diagnostic Radiology | DX: R29.810 Facial weakness (principal); G51.0 Bell's palsy | CPT/HCPCS: 70496; 70498; 70551 ==

== ENCOUNTER 2025-06-01 15:17 | Outpatient (REF) | payer OTHER, SELFPAY ==
--- OUTSIDE RECORDS SUMMARY | 2025-06-01 15:33 | XMS_ITS | Encounter Summary ---
Author Organization [employer] Address [address] [place] [address] Care Team Providers Care Filter Tender Name Role Phone Anisa Brennan MD Primary Care Provider + Reason for Visit * Reason Comments Med Refill Encounter Details Date Type Department Care Team ([facility] Contact Info) Description 05/09/2023 Refill [facility] [address], [place] [phone] Anisa Brennan MD [address] [place] [address] Type 2 diabetes mellitus with hyperglycemia, without long-term current use of insulin ([facility]) Social History Tobacco Use Types Packs/Day Years [...] Care Team (Late st Contact Info) Description 08/18/2025 3:00 PM EDT Office Visit [facility] [address] [place] [address] Paul, Yashira 09/04/2025 3:00 PM EST Office Visit [facility] [address] [place], [place] [phone] Lima Pena, OD [address] [place] [address] documented as of this encounter Visit Diagnoses Diagnosis Type 2 diabetes mellitus with hyperglycemia, without long-term current use of insulin ([facility]) documented in this encounter Additional Health Concerns Assessment Noted Time PHQ-9 Depression Total Score: 2 04/18/20 23 10:18 AM EDT documented as of this encounter Care Teams Filter Tender Relationship Specialty Start Date End Date Anisa Brennan MD [address] [place] [address] PCP - General Family Medicine 04/03/17 Kaylyn Stafford [employer] Re[employer] 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
== END 2025-06-01 15:18 | disposition home or self-care (01) ==
LOC: HO.HHCL 15:17
PROVIDERS: PCP Internal Medicine; Visit Provider Internal Medicine
DX: Z11.1 Encounter for screening for respiratory tuberculosis (principal)
CPT/HCPCS: 36415; 86481